=== PATIENT | female | born 1950 | race Caucasian/White ===

== ENCOUNTER 2025-04-03 13:25 | Inpatient (IN) | payer MEDICARE, SELFPAY ==
[2025-04-03] VITALS (27 sets, daily range): BP systolic 107–231; BP diastolic 59–176
--- NOTE | 2025-04-03 11:44 | ED.GENMED ---
History of Present Illness
General
Chief Complaint: Numbness
Time Seen by Provider: 04/03/25 11:31
History of Present Illness
History of Present Illness:
74-year-old female with history of hypertension presents to the emergency department for evaluation of left-sided paresthesias and subjective left-sided weakness that began this morning at 9:30 AM. She states she had a fall 2 days ago but denies
any symptoms after that. Was knitting this morning when the symptoms began. Stroke alert called promptly on arrival of patient to the ED. She denies any use of anticoagulants, does take baby aspirin intermittently but uncertain if she took this
in the past 5 days. No chest pain or dyspnea.
Past History
Past History
ED Past Medical History: None
ED Past Surgical History: None
Social History
Tobacco: Non-smoker
Alcohol: Occasional
Living: with family
Review of Systems
Review of Systems
Allergies reviewed?: Yes
All Other Systems: ROS reviewed and negative except as documented in HPI and ROS
Phy Exam
Physical Exam
Physical Exam:
GEN: Well appearing, NAD, WDWN
HEENT: Oral mucosa moist, no scleral icterus, no nasal congestion
Cardiac: Regular rate and rhythm
Lung: No respiratory distress, no tachypnea
MSK: No gross deformity or injuries
Skin: Good color, no pallor or jaundice, no rashes
Neuro: AO x3; CN II-XII grossly intact. BUE strength 5/5 in all flowers, mild hypoesthesia noted to the left upper extremity. BLE strength 5/5 in all flowers, mild hypoesthesia noted to the left lower extremity; abnormal [id number] to the left
upper extremity and abnormal [id number] to the left lower extremity, NIH of 3
Psych: Calm, cooperative
Scores
NIH Stroke Score
Level of Consciousness: 0 - Alert
LOC Questions: 0-Answers both correctly
LOC Commands: 0-Performs both correctly
Best Horizontal Gaze: 0-Normal
Visual Flowers: 0=Normal, no visual loss
Facial Palsy: 0=Normal, symmetrical
Motor - Right Arm: 0=No drift 10 seconds
Motor - Left Arm: 0=No drift 10 seconds
Motor - Right Le-No drift 5 seconds
Motor - Left Le-No drift 5 seconds
Limb Ataxia: 2-Present in two limbs
Sensation: 1-Mild loss
Best Language: 0-No aphasia
Dysarthria: 0-Normal
Extinction and Inattention: 0-No abnormality
NIH Total Score:: 3
Course
Orders/Labs/Results
Orders:
Orders
04/03/25 11:34
CT HEAD STROKE ALERT W/o Cont Stat
Comment:
Reason For Exam: stroke alert
04/03/25 11:43
Electrocardiogram (*1) Urgent
Reason for Study: TIA/Stroke
EKG- Treatment ONCE
Labetalol HCl [Trandate] 10 mg IV NOW STA
04/03/25 11:45
Nicardipine 40 mg/200 ml [Cardene] 40 mg in 200 ml IV PER PROTOCOL
Initial dose in mg/hr, then titrate:: 5
Titrate to keep:: SBP 120 - 140 mmHg
Titrate by mg/hr:: 2.5 mg/hr
Frequency of titrations (minutes):: 5-15 minutes
Maximum dose in mg/hr:: 15
Begin to taper infusion when:: Remained at goal for 2hrs
Taper by mg/hr:: 2.5 mg/hr
Frequency of taper (minutes) if patient maintains goal:: every 15-30 minutes
Taper to off?: Yes
If infusion off & no longer maintaining goal:: Contact Provider
04/03/25 11:55
Complete Blood Count/With Diff Urgent
Comprehensive Metabolic Panel Urgent
04/03/25 13:09
Admit/Transfer Patient As Directed
Co-Sign Provider:
Level of Care: Inpatient admission
Assign to:: ICU
Physician / Group: chris
Diagnosis: hypertensive emergency
Reason for Hospitalization: hypertensive emergency
Expected length of stay greater than two midnights?: Yes
ELOS- Estimated Length of Stay in days: 2
I certify the patient meets the requirements for IP care: Yes
04/03/25 13:10
Code Status As Directed
Resuscitation Status: Full Code
PRN Pain Medication Management As Directed
May give lesser potent ordered pain med per pt: Yes
preference::
Protocol:: Medication orders for pain may be administered in a
manner that supports deferring to patient preference
when the pt is:
- Requesting an ordered lesser potent pain medication.
Least to most potent pain medications are defined
as: acetaminophen < NSAID < tramadol < opioids
(morphine, oxycodone, hydromorphone).
- Requesting a lesser dose of the same medication IF
ORDERED.
- Requesting a less intrusive route of administration
if both routes are prescribed by the provider (PO <
IV).
Abnormal Lab Results
04/03/25 04/03/25
11:47 11:55
Chloride 110 H mmol/L
(98-107)
Glucose 113 H mg/dl
(70-99)
POC Glucose 104 H mg/dl
(70-99)
04/03/25 11:55
04/03/25 11:55
Vital Signs
Initial and Last Documented VS:
Initial Vital Signs
Temp Pulse Resp BP Pulse Ox
98.6 F 93 20 231/176 98
04/03/25 11:24 04/03/25 11:24 04/03/25 11:24 04/03/25 11:24 04/03/25 11:24
Last Documented Vital Signs
Temp Pulse Resp BP Pulse Ox
98.6 F 78 16 137/84 96
04/03/25 11:24 04/03/25 13:00 04/03/25 13:00 04/03/25 13:00 04/03/25 12:31
MDM/Problems Addressed
MDM/Problems Addressed:
74-year-old female presenting as a stroke alert due to acute onset of left-sided paresthesias and 'weakness'. She is found to have an NIH of 3 on the basis of upper and lower left limb ataxia and diffuse left-sided paresthesias with hypoesthesia.
Taken urgently for CT of the head which showed a small right basal ganglia bleed which is most likely hypertensive in nature. Patient started promptly on IV antihypertensives and will be admitted to the intensive care unit for further aggressive
monitoring and blood pressure management. Seen in conjunction with neurology
Comment
Comment:
EKG independently interpreted by me shows normal sinus rhythm at a rate of 90 with a left bundle branch block and no ischemic changes
*Pulse Oximetry
SaO2: 98
Oxygen Mode of Delivery: Room air
Patient hypoxic: no
*Critical Care Note
Total Time (30-74mins, 75-104mins- exclusive of procedures): 35 minutes
comment:
Critical care time: 35 minutes
Critical care time was exclusive of: Separately billable procedures, treating other patients, and teaching time
Critical care was necessary to treat or prevent imminent or life-threatening deterioration of the following conditions: Acute hemorrhagic stroke due to hypertensive emergency
Critical care time spent personally by me on the following activities:
[x] Review of old charts
[x] Obtaining history from patient or surrogate
[x] Ordering and review of the laboratory studies
[x] Ordering and review of radiographic studies
[x] Ordering and performing treatments and interventions
[x] Patient patient's response to treatment
[x] Development of treatment plan with patient or surrogate
Update Note
Update Note:
1135: CT of the head independently interpreted by myself showing a small right thalamic hemorrhage likely acute. Will cancel CT perfusion and CT angiogram. Reviewed with neurology, no indication for transfer at this time. Will start aggressive
antihypertensives, given that the patient is uncertain about recent use of baby aspirin will give DDAVP
Patient is not a thrombolytic candidate on the basis of acute intracranial hemorrhage
ED Attending Note
-
Portions of this chart may have been created with voice recognition software.� Occasional wrong word or��sound alike� substitutions may have occurred due to the inherent limitations of voice recognition software.
Discharge Plan
Departure
Patient Disposition: Admit
Date of Disposition: 04/03/25
Time of Disposition: 11:47
Admit to: ICU
Presentation/result/management discussed w/ accepting MD/DO: Hospitalist
Discharge Problem:
Hemorrhagic stroke
Prescriptions:
No Action
calcium carbonate [Calcium 600] 600 mg calcium (1,500 mg) Tablet
600 mg PO DAILY
ibuprofen [Advil] 200 mg Tablet
200 mg PO DAILY
Interventions
Interventions:
*Risk Screen - Suicide Last Done: 04/03/25 11:24
*General Assessment Last Done: 04/03/25 11:52
*Neglect/Abuse Screening Last Done: 04/03/25 11:24
*ED- Fall Risk Assessment Last Done: 04/03/25 11:52
ED- Neurological Assessment Last Done: 04/03/25 12:16
Discharge Date and Time
Print Language: NIUEAN
--- NOTE | 2025-04-03 11:50 | CON.NEURO ---
Consultation
Order
Date of Consultation: 04/03/25
Reason for Consult: Stroke alert
Activated at 11:32 am
Neurology Consultation Note.
HPI: This is a 74-year-old right-handed woman who presented to [facility] on 04/03/2025 with sensory symptoms.
According to the patient she developed an acute simultaneous left face arm and leg numbness and left hand clumsiness at 9:30 in the morning today. No reports of headaches, change in strength, vision or abnormal movements.
ER VS: 231/176, 93, 20, afebrile
EKG:NSR, QTc Int : 484 ms.
PDMP:none
Labs:Glucose�104, normal WBCs, platelets
CT head wo contrast�acute left thalamic hemorrhagic infarct
PMH: DLP, M�ni�re's disease,
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
All: Pineapple
ROS: Positive for left-sided numbness and left hand clumsiness
NIH Stroke Scale
1A Level of Consciousness: 0/3
1B LOC Questions: 0/2
1C LOC Commands: 0/2
2 Best Gaze: 0/2
3 Visual: 0/3
4 Facial Palsy: 0/3
5A Motor Arm LEFT: 0/4
5B Motor Arm RIGHT: 0/4
6A Motor Leg LEFT: 0/4
6B Motor Leg RIGHT: 0/4
7 Limb Ataxia: 1/2
8 Sensory: 1/2
9 Best Language: 0/3
10 Dysarthria: 0/2
11 Extinction/Inattention: 0/2
Total NIHSS: 2
Assessment and Plan:
I. Acute right thalamic stroke with hemorrhagic conversion
II. Hypertensive emergency
III. DLP
-Continue Telemetry monitoring
-Aspiration precautions
-Cautious lowering of BP by approximately 15 % during the first 24 hours is SBP >220 mmHg or diastolic blood pressure >120 mmHg
-Start antihypertensive medications if BP>140/90 mmHg and neurologically stable in 24 to 48 hours after stroke onset
-TTE
-No antiplatelets medications for now.
-Lipitor 40 mg QHS.
-Please check HbA1C, LDL.
-Brain MRI
-For patients at increased risk of gastroduodenal toxicity from antiplatelet agents, particularly those 75 years of age or older, it is reasonable to coadminister a proton pump inhibitor
-Lifestyle modification, such as smoking cessation, exercise, and diet
-PT.
-DVT prophylaxis.
I personally reviewed all radiology and labs along with past medical records pertinent to current medical problems. Total time spent in patient care is 60 minutes.
Thank you for allowing us to participate in the care of this patient. We will continue to follow. Please do not hesitate to contact us with any questions or concerns.
Subjective/Objective
Subjective Data
Date of Service: April 03, 2025
Objective Data
Vital Signs
Temp Pulse Resp BP Pulse Ox
37.0 C 93 20 231/176 98
04/03/25 11:24 04/03/25 11:24 04/03/25 11:24 04/03/25 11:24 04/03/25 11:45
Patient Allergies
pineapple (Pineapple) Allergy (Verified 04/03/25 11:24)
Anaphylaxis
Medications
-
Active Medications
Generic Name Dose Route Start Last Admin
Trade Name Freq PRN Reason Stop Dose Admin
Nicardipine/Sodium Chloride 40 mg in 200 mls @ 0 mls/hr 04/03/25 11:45
Cardene IV
PER PROTOCOL KAJAL
Protocol
Per Protocol
Desmopressin Acetate 32 mcg/ 58 mls @ 116 mls/hr 04/03/25 11:49
Sodium Chloride IV 04/03/25 12:14
NOW STA
Home Medications
�Medication �Instructions �Recorded
aspirin 81 mg tablet,delayed 81 mg PO DAILY ##0 08/02/13
release
[2025-04-03 11:53] LABS: Glucose - Point of Care 104 mg/dl (70-99)
[2025-04-03 12:06] LABS: % Basophils 0.5 % (0-2); % Eosinophils 3.2 % (0-6); % Immature Granulocytes 0.3 % (0-0.5); % Monocytes 6.6 % (1.7-9.3); % Neutrophils 65.4 % (42.2-75.2); Absolute Eosinophils 0.3 10^3/uL (0-0.7); Absolute Lymphocytes 1.9 10^3/uL (1.2-3.4); Absolute Monocytes 0.5 10^3/uL (0.1-0.6); Absolute Neutrophils 5.2 10^3/uL (1.4-6.5); Hematocrit 46.4 % (37.0-47.0); Hemoglobin 15.4 g/dL (12.0-16.0); Mean Corp Hgb Conc. 33.2 g/dL (33.0-37.0); Mean Corpuscular Hgb 29.5 pg (27.0-31.0); Mean Corpuscular Volume 88.9 fL (81.0-99.0); Nucleated Red Blood Cells % 0 %; Platelet Count 297 10^3/uL (130-400); Red Blood Cell Count 5.22 10^6/uL (4.20-5.40); White Blood Cell Count 7.9 10^3/uL (4.8-10.8)
[2025-04-03] MEDS: CARDENE 200 IV ×3 (12:06→20:17)
[2025-04-03] MEDS: TRANDATE 10 MG IV (12:06)
[2025-04-03 12:20] LABS: ALT (SGPT) 12 U/L (0-35); AST (SGOT) 20 U/L (14-36); Albumin 4.9 g/dl (3.5-5.0); Alkaline Phosphatase 90 U/L (38-126); Blood Urea Nitrogen 17 mg/dl (7-17); Calcium 9.5 mg/dl (8.4-10.2); Carbon Dioxide 23 mmol/L (22-30); Chloride 110 mmol/L (98-107); Estimated Creatinine Clearance 47 ml/min; Glucose 113 mg/dl (70-99); Potassium 4.3 mmol/L (3.5-5.1); Sodium 141 mmol/L (135-145); Total Protein 8.2 g/dl (6.3-8.2); eGFR 58.75
--- NOTE | 2025-04-03 13:19 | HPS.HSE ---
Family Physician
-
Family Physician: * NONE
Chief Complaint
-
left sided numbness
History of Present Illness
74-year-old female past medical history of M�ni�re's disease, hypertension possibly on medication years ago, prior stroke 10 years ago, presenting with left-sided numbness and subjective left-sided weakness that started this morning at 9:30 AM. She
describes that she had a pinched nerve with numbness of the left arm, left face and left leg. She had a fall 2 days ago but denies any symptoms after that. She was knitting this morning when the symptoms began. Stroke alert was called on arrival
of patient coming to the emergency room. She is not on any blood thinners. She does take baby aspirin intermittently but not sure if she took in the past 5 days. Denies chest pain or shortness of breath. Denies any difficulty speaking or
confusion. No dizziness or vertigo. No blurry vision.
Denies alcohol, smoking or any drugs.
Medical History
Past Medical History
Past Medical History: Reports Other (M�ni�re's disease, hypertension possibly on medication years ago, prior stroke 10 years ago)
Past Surgical History: Reports None
Social History
Tobacco: Non-smoker
Alcohol: None
Drug: None
Family History
Family History: Not pertinent
Allergies / Home Medications
Allergies reflects when Allergies were last updated in [facility].
Home Medications with original date entered in [facility]
Allergy/Medication List:
Allergies
Allergy/AdvReac Type Severity Reaction Status Date / Time
pineapple (Pineapple) Allergy Anaphylaxis Verified 04/03/25 11:24
Home Medications
calcium carbonate (Calcium 600) 600 mg PO DAILY Supplement 04/03/25
ibuprofen 200 mg tablet (Advil) 200 mg PO DAILY mild pain 04/03/25
Review of Systems
-
History Source: Patient
Constitutional: Reports No Symptoms
EENT: Reports No Symptoms
Respiratory: Reports No Symptoms
Cardiac: Reports No Symptoms
Abdomen/GI: Reports No Symptoms
: Reports No Symptoms
Musculoskeletal: Reports No Symptoms
Skin: Reports No Symptoms
Neurological: Reports No Symptoms
Endocrine: Reports No Symptoms
Hematologic/Lymphatic: Reports No Symptoms
Psych: Reports No Symptoms
Physical Exam
Vital Signs
Vital Signs
Temp Pulse Resp BP Pulse Ox
98.6 F 78 16 137/84 96
04/03/25 11:24 04/03/25 13:00 04/03/25 13:00 04/03/25 13:00 04/03/25 12:31
Physical Exam
General: Well Developed, Well Nourished and No Apparent Distress
HEENT: NormoCephalic, Moist mucous membranes and Atraumatic
Respiratory: Clear
Cardiac: S1/S2 and Regular Rhythm; No Murmur or Rub
GI: Soft, Non Tender, Non Distended and Normal Bowel Sounds; No Organomegaly
Rectal: Deferred by Provider
Musculoskeletal: No Clubbing, No Cyanosis and No Edema
Skin: No Rash
Neuro: Nonfocal/grossly intact
Laboratory Results
-
04/03/25 11:55
04/03/25 11:55
Laboratory Results
Total Bilirubin 1.0 mg/dl (0.2-1.3) 04/03/25 11:55
AST 20 U/L (14-36) 04/03/25 11:55
ALT 12 U/L (0-35) 04/03/25 11:55
Alkaline Phosphatase 90 U/L (38-126) 04/03/25 11:55
Data Reviewed
-
Lab Data: Labs Reviewed by me
Old Records: Reviewed
Impression/Plan
-
IMPRESSION:
PLAN:
# Right thalamic small acute infarct with hemorrhagic conversion secondary to hypertensive emergency
-CT head shows right thalamic small acute hemorrhagic infarct
- NIH 3
-Check A1c and lipid panel
- Start Lipitor 40 mg
- Check MRI brain
-Check echo
-No antiplatelet medications
- Neurology consulted
# Hypertensive emergency likely due to uncontrolled hypertension
- Labetalol given
- Nicardipine drip
Prior CVA 10 years
M�ni�re's disease
Full code
DVT prophylaxis- SCDs
Regular diet
[2025-04-03 14:47] LABS: INR 0.92; PT 12.8 Sec (11.4-14.6)
[2025-04-03 14:48] LABS: APTT 28.8 Sec (23.4-35.0)
--- NOTE | 2025-04-03 14:55 | PTCARENOTE ---
Addendum entered by Kelsey Bailey RN 04/03/25 15:33:
Cardene gtt titrated up for SBP 145 per order, see flowsheet.
Original Note:
Pt rec'd from ED RN, oriented to room and plan of care, Aox3, pleasant and cooperative. Orders reviewed, call acosta in hand, at bedside. Cardene gtt infusing at 7.5 mg/hr upon handoff. Assessment as documented -see worklist. 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
at this time.
[2025-04-03 15:27] LABS: Glucose - Point of Care 121 mg/dl (70-99)
--- NOTE | 2025-04-03 16:31 | CON.INTV ---
Consultation
Consultation Request
Date/Time Consultation Requested: 04/03/2025
Date/Time Consultation Performed: 04/03/2025
Requesting Provider: Dr. Mills
Performing Provider: DR. Zechariah Lynch
Reason for Consultation: Right thalamic small acute infarct/hemorrhagic conversion-hypertensive clarke
Medical History
-
History of Present Illness:
74-year-old woman with past medical history significant for M�ni�re's disease, hypertension prior CVA 10 years ago, presented with left-sided numbness and subjective left-sided weakness that started in the morning of admission.
She was admitted to the hospital 04/03/2025.
She does describe a fall about 2 days ago. No residual symptoms from that.
She was at rest sitting when symptoms started in the morning.
Does not take any antiplatelets or anticoagulants.
Denies shortness of breath, chest pain or palpitations.
Denies difficulty with his speech or her mental status is at baseline.
Denies blurry vision.
Denies alcohol use or smoking use.
Stroke alert was called: CT head showed right thalamic small acute infarct with hemorrhagic conversion significantly elevated blood pressure.
Admitted to the critical care unit for IV infusion antihypertensive.
Past Medical History
Past Medical History: Other ( see assessment and plan)
Social History
Tobacco: Non-smoker
Alcohol: None
Drug: None
Family History
Family History: Reviewed & Not Pertinent
Allergies / Home Medications
Allergies
Allergy/AdvReac Type Severity Reaction Status Date / Time
pineapple (Pineapple) Allergy Anaphylaxis Verified 04/03/25 11:24
Home Medications
�Medication �Instructions �Recorded �Confirmed �Last Taken �Type
calcium carbonate (Calcium 600) 600 mg PO DAILY Supplement 04/03/25 04/03/25 Unknown History
ibuprofen 200 mg tablet (Advil) 200 mg PO DAILY mild pain 04/03/25 04/03/25 Unknown History
Review of Systems
-
History Source: Patient
All other systems: Negative unless noted
Vitals / Labs / Diagnostic Testing
Vital Signs
Temp Pulse Resp BP Pulse Ox
97.9 F 84 22 136/94 96
04/03/25 16:11 04/03/25 16:00 04/03/25 16:00 04/03/25 16:00 04/03/25 16:00
Lab Data
04/03/25 11:55
04/03/25 11:55
Laboratory Results
04/03/25
14:30
PT 12.8
INR 0.92
APTT 28.8
Diagnostic Testing:
Physical Exam
-
HEENT: Normocephalic
Cardiovascular: S1/S2
Respiratory: Clear and Non-Labored Respirations
GI: Soft and Non Distended
Neurology: Awake and Alert
Skin: Warm
General: Comfortable
Assessment
-
74-year-old woman with past medical history noted. Admitted with neurological symptoms-found to have small hemorrhagic thalamic stroke. Hypertensive emergency. Admitted to the critical care unit for close monitoring and IV antihypertensive
therapy.
Hypertensive emergency-blood pressure in the emergency room 230/176
Acute CVA-left thalamic with hemorrhagic infarct.
CT head 04/03/2025: Reviewed right thalamic small acute hemorrhagic infarct.
Chest x-ray: Reviewed showed no acute abnormalities
Conditions present prior admission:
History of hypertension-not on medication
History of M�ni�re's disease
Assessment and plan:
Critically ill requiring IV antihypertensive infusion
Normal renal function
Chest x-ray without widened mediastinum
EKG nonischemic- Denies chest
Continue Cardene drip-will titrate
-Target BP by approximately 15 % during the first 24 hours is SBP >220 mmHg or diastolic blood pressure >120 mmHg
-Start antihypertensive medications if BP>140/90 mmHg and neurologically stable in 24 to 48 hours after stroke onset
Hemodynamic monitoring
Eventual speech evaluation.
Aspiration precautions
Obtain echocardiogram
No antiplatelets medications for no due to hemorrhagic conversion.
Continue statin
Eventual MRI
Eventual PT/OT evaluation.
-DVT prophylaxis--SCDs
Critical care statement: A total of 38 minutes of critical care time was provided for this patient today. This includes management of unstable vital signs, evaluation of the patient at bedside, reviewing the patient's pertinent medical records
including ventilator settings, arterial blood gases, radiographs, microbiology, laboratory evaluations and discussion with primary team, critical care nursing, and respiratory therapy.
[2025-04-03 17:08] LABS: HDL Cholesterol 51 mg/dl; LDL Cholesterol, Calculated 227 mg/dl; Magnesium 2.3 mg/dl (1.6-2.3); Phosphorus 3.2 mg/dl (2.5-4.5); Total Cholesterol 319 mg/dl (50-199); Triglyceride 206 mg/dl (10-149); Very Low Density Lipoprotein 41 mg/dl (0-30)
--- NOTE | 2025-04-03 20:00 | PTCARENOTE ---
Addendum entered by Henrietta Jenkins RN 04/04/25 03:31:
Pt states that the sensation in the left side (face, arm, leg) are all improving. Pt was able to clarify that earlier [id number] the sensation was almost back to normal but still decreased. Assessment otherwise unchanged. Pt was able to ambulate to [facility]
BR with a standby assisst for lines. Pt educated onj the need for monitoring equipment. Belongings and call acosta within reach
Addendum entered by Henrietta Jenkins RN 04/03/25 23:23:
Pt reports improving LLE sensation 'They feel the same'. NIH 1. Assessment otherwise unchanged. Pt's belongings and call acosta within reach.
Original Note:
Pt care assumed by this RN. NIH performed with previous RN for establishment of baseline. IVs in place and WDL. See EMR for Cardene titration.
Pt remains AOx4. NIH of 2, deficit in left sided sensation (decreased but slowly improving) and ataxia in the LUE. ERLIN. Palp Pules with - edema in AE. Clear but diminished BS in AL. + BS in AQ with a soft nontender abd. LBM today this AM per
report. Pt is able to ambulated to the BR with a standby assist for management of lines and devices. Skin intact. Pt cares for self and is motivated to go home. Plan of care was reviewed. Call acosta and personal belongings within reach.
[2025-04-04] VITALS (23 sets, daily range): BP systolic 123–168; BP diastolic 62–98; PULSE 91–93; BMI 26.9
[2025-04-04 06:23] LABS: % Basophils 0.3 % (0-2); % Eosinophils 2.1 % (0-6); % Immature Granulocytes 0.4 % (0-0.5); % Lymphocytes 22.9 % (20.5-51.1); % Monocytes 8.5 % (1.7-9.3); % Neutrophils 65.8 % (42.2-75.2); Absolute Eosinophils 0.2 10^3/uL (0-0.7); Absolute Lymphocytes 1.7 10^3/uL (1.2-3.4); Absolute Monocytes 0.6 10^3/uL (0.1-0.6); Absolute Neutrophils 4.9 10^3/uL (1.4-6.5); Hemoglobin 13.2 g/dL (12.0-16.0); Mean Corpuscular Hgb 29.3 pg (27.0-31.0); Mean Corpuscular Volume 88.7 fL (81.0-99.0); Nucleated Red Blood Cells % 0 %; Platelet Count 261 10^3/uL (130-400); Red Blood Cell Count 4.51 10^6/uL (4.20-5.40); Red Cell Dist. Width 14.2 % (11.5-14.5); White Blood Cell Count 7.5 10^3/uL (4.8-10.8)
[2025-04-04 06:49] LABS: ALT (SGPT) 10 U/L (0-35); AST (SGOT) 17 U/L (14-36); Albumin 3.8 g/dl (3.5-5.0); Alkaline Phosphatase 65 U/L (38-126); Blood Urea Nitrogen 20 mg/dl (7-17); Calcium 8.9 mg/dl (8.4-10.2); Carbon Dioxide 23 mmol/L (22-30); Chloride 114 mmol/L (98-107); Estimated Creatinine Clearance 53 ml/min; Glucose 109 mg/dl (70-99); Potassium 4.1 mmol/L (3.5-5.1); Sodium 141 mmol/L (135-145); Total Bilirubin 0.9 mg/dl (0.2-1.3); Total Protein 6.5 g/dl (6.3-8.2); eGFR > 60.00
--- NOTE | 2025-04-04 07:48 | W.PN.NEURO.1 ---
Today's Communication / Plan
-
.
Subjective/Objective
Subjective Data
Date of Service: April 04, 2025
Neurology follow-up note
Ms. Savage reports no complaints. Her blood pressure has normalized on after Cardene drip and losartan initiation.
No reports of headache change in vision.
The patient describes her previous stroke, which occurred 10 years ago. At that time, she experienced profuse sweating, vomiting, and imbalance and was treated at [facility].
She states she stopped taking her 'stroke medicine' due to stomach irritation. The patient expresses reluctance to take aspirin, saying, 'No, it spins out my blood too much.'
TTE-Interatrial septum is intact with no evidence of shunting by color flow Doppler.
[id number].
Brain MRI wo tara-stable acute R thalamic hemorrhagic infarct, chronic right external capsule hemorrhagic infarct. Other tiny chronic hemorrhagic lacunar infarcts are noted involving the right and left thalamus, and central juanjo. Mild
encephalomalacia with chronic hemosiderin component demonstrated involving the medial left cerebellar hemisphere, consistent with old infarct.
PMH: DLP, M�ni�re's disease,
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
All: Pineapple, ASA?
ROS: Positive for fluctuating mood
General: Well developed. In no acute distress.
Cardio: Regular rate and rhythm without murmur. Extremities are without cyanosis or edema.
Neuro:
Mental Status: Alert, oriented to person, place, and date. Labile mood. Tangential. Follows complex requests across the midline. Comprehension, naming, and repetition intact.
Cranial Nerves: Unable to visualize optic discs due to insufficient dilatation. Pupils are equally round and reactive to light. EOMs full. Visual flowers full to confrontation. No ptosis. No nystagmus. V1-V3 intact to light touch and pinprick
bilaterally, symmetric. Face symmetric. Impaired hearing AU. The palate elevated well. SCMs and traps 5/5. Tongue midline. No dysarthria.
Motor: Normal bulk and tone. No pronator or arm drift. Strength 5/5 throughout. No clonus.
Sensory: Normal LT
Coordination: No dysmetria or tremor.
Gait: deferred
Assessment and Plan:
I. Acute right thalamic stroke with hemorrhagic conversion. Likely etiology�small vessel disease.
II. Vascular encephalopathy
III. DLP
-Continue Telemetry monitoring
-Blood pressure goal�normotension
-Please follow up Carotid Doppler US results
-Lipitor 40 mg QHS.
-Please repeat CT head without contrast tomorrow before starting Plavix 75 mg daily given aspirin intolerance.
-DVT prophylaxis.
- Outpatient neurology follow-up.
I personally reviewed all radiology and labs along with past medical records pertinent to current medical problems. Total time spent in patient care is 40 minutes.
Thank you for allowing us to participate in the care of this patient. Please do not hesitate to contact us with any questions or concerns.
Objective Data
Vital Signs
Temp Pulse Resp BP Pulse Ox
36.2 C 79 19 137/76 93
04/04/25 07:04 04/04/25 07:00 04/04/25 07:00 04/04/25 07:00 04/04/25 07:00
Lab Results
04/04/25 06:08
04/04/25 06:08
PT 12.8 Sec (11.4-14.6) 04/03/25 14:30
INR 0.92 04/03/25 14:30
APTT 28.8 Sec (23.4-35.0) 04/03/25 14:30
Sodium 141 mmol/L (135-145) 04/04/25 06:08
Potassium 4.1 mmol/L (3.5-5.1) 04/04/25 06:08
BUN 20 mg/dl (7-17) H 04/04/25 06:08
Glucose 109 mg/dl (70-99) H 04/04/25 06:08
Calcium 8.9 mg/dl (8.4-10.2) 04/04/25 06:08
Phosphorus Cancelled 04/03/25 14:37
LDL Cholesterol, Calc Cancelled 04/03/25 14:37
Patient Allergies
pineapple (Pineapple) Allergy (Verified 04/03/25 11:24)
Anaphylaxis
Vital Signs and Labs
-
Vital Signs and Labs:
Vital Signs
Temp Pulse Resp BP Pulse Ox
36.9 C 88 17 153/85 94
04/04/25 10:57 04/04/25 12:52 04/04/25 12:52 04/04/25 12:52 04/04/25 09:00
Lab Results
04/04/25 06:08
04/04/25 06:08
PT 12.8 Sec (11.4-14.6) 04/03/25 14:30
INR 0.92 04/03/25 14:30
APTT 28.8 Sec (23.4-35.0) 04/03/25 14:30
Sodium 141 mmol/L (135-145) 04/04/25 06:08
Potassium 4.1 mmol/L (3.5-5.1) 04/04/25 06:08
BUN 20 mg/dl (7-17) H 04/04/25 06:08
Glucose 109 mg/dl (70-99) H 04/04/25 06:08
Calcium 8.9 mg/dl (8.4-10.2) 04/04/25 06:08
Phosphorus Cancelled 04/03/25 14:37
LDL Cholesterol, Calc Cancelled 04/03/25 14:37
Medications
-
Medications:
Generic Name Dose Route Start Last Admin
Trade Name Freq PRN Reason Stop Dose Admin
Calcium Carbonate 500 mg 04/04/25 08:00 04/04/25 07:57
Calcium Carbonate 500 Mg Tablet PO 05/02/25 07:59 500 mg
DAILY KAJAL Administration
Nicardipine/Sodium Chloride 40 mg in 200 mls @ 0 mls/hr 04/03/25 11:45 04/03/25 20:17
Cardene IV 200 mls
PER PROTOCOL KAJAL Administration
Protocol
Per Protocol
Losartan Potassium 25 mg 04/05/25 08:00
Losartan 25 Mg Tablet PO 05/03/25 07:59
DAILY KAJAL
Sodium Chloride 0 flush 04/03/25 15:00
Sodium Chloride 0.9% (Flush) Syringe IV 05/01/25 14:59
PER PROTOCOL KAJAL
Home Medications
-
Home Medications
calcium carbonate (Calcium 600) 600 mg PO DAILY Supplement 04/03/25
ibuprofen 200 mg tablet (Advil) 200 mg PO DAILY mild pain 04/03/25
[2025-04-04] MEDS: OSCAL CAL 500 500 MG PO (07:57)
--- NOTE | 2025-04-04 08:58 | PTCARENOTE ---
Pt rec'd from previous RN 07:15, AOx3, pleasant and conversant, NIHSS 2 with sx continuing to improve, sl ataxia in LUE and decreased sensation in L side noted. Pt with Cardene gtt infusing at 2.5 mg/hr -BPs continue WNL-see worklist. Medications
and assessment as documented, pt ate 100% breakfast. Plan discussed with rubbing bed operator Dr. Lynch, neurologist Dr. Corado. Pt for MRI and Carotid US today, and eventually transition to oral medications. Pt in agreement with plan, anxious to go home,
stated (pleasantly) she will leave AMA if not discharged today. Pt stated she is not able to rest well in hospital due to new surroundings. Plan for outpatient followup discussed, pt needs to select new PCP as her previous MD .
Recommendations provided by this RN, printout provided for patient to take home for reference. Stroke education reinforced with handout, videos and verbal education. Pt verbalized understanding and stated she is aware she needs to adhere to
medication regimen going forward. Pt in good spirits, call acosta in hand, states she will get oob to chair after phone call with her . Safe environment continues.
[2025-04-04] MEDS: COZAAR 25 MG PO (09:39)
--- NOTE | 2025-04-04 09:42 | PTCARENOTE ---
Addendum entered by Kelsey Bailey RN 04/04/25 09:54:
Pt assisted oob to walk into bathroom and perform hygiene care; urinated 200 mls yellow/nataly urine, arnie care, CHG bath and oral care completed. Seated in chair with call acosta at this time.
Original Note:
Plan discussed in grand rounds. 25 mg Losartan ordered and given at this time.
--- NOTE | 2025-04-04 10:15 | CM ---
Initial assessment completed with patient who lives with her in a 3 story home plus basement with B/B on all 3 floors and 1 step to enter. 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 No DME or in-home services. No HC-POA,
no service. Support system is her and a grounds helper. No PCP, recently . Seeking another. Pharmacy is [facility] on [address] [facility] in [place], [place]. Discharge POC: Home with no needs.
--- NOTE | 2025-04-04 10:44 | W.PN.INTV ---
Today's Communication / Plan
Recommendations
Losartan
Wean off Cardene drip
Physical therapy/Occupational Therapy
Pending MRI
Possible transfer to telemetry later today.
Assessment
-
74-year-old woman with past medical history noted. Admitted with neurological symptoms-found to have small hemorrhagic thalamic stroke. Hypertensive emergency. Admitted to the critical care unit for close monitoring and IV antihypertensive
therapy.
Hypertensive emergency-blood pressure in the emergency room 230/176
Acute CVA-left thalamic with hemorrhagic infarct.
CT head 04/03/2025: Reviewed right thalamic small acute hemorrhagic infarct.
Chest x-ray: Reviewed showed no acute abnormalities
Conditions present prior admission:
History of hypertension-not on medication
History of M�ni�re's disease
Assessment and plan:
Clinically improved-blood pressure has been significantly better.
Remains on low-dose Cardene drip
Will transition to oral antihypertensive-losartan 25 mg given today 04/04/2025.
Hoping to wean off Cardene drip today.
-
Neurologically intact. Denies any complaints.
Echocardiogram 04/03/2025: Reviewed, showed normal LVEF. No regional motion wall abnormalities. Stage I diastolic dysfunction. Normal right ventricular size and function. No significant valvular abnormalities.
Normal renal function
Chest x-ray without widened mediastinum
EKG nonischemic- Denies chest
Continue Cardene drip-will titrate
-
For MRI today.
Antiplatelets per primary team/neurology
Continue statin
-
Tolerating diet
Continue aspiration precaution
-
-DVT prophylaxis--SCDs
Waiting for MRI, if there is no significant hemorrhagic conversion then transferred to telemetry.
If patient is transferred to telemetry critical care team will sign off.
Subjective Dataa
Subjective Data
Date of Service:
Date of Service: April 04, 2025
Chief Complaint: Cost Control Analyst Follow Up (Hypertensive emergency--CVA)
Subjective:
Patient denies any complaints this morning
Denies headache, blurry vision.
Denies nausea or vomiting.
Denies shortness of breath.
Remain on Cardene drip overnight
Review of Systems
Cardiopulmonary: Dyspnea (n) and Dyspnea on Exertion (n)
GI: Abdominal Pain (n)
Neuro: Headache (n)
Objective Data
Data Reviewed
Vital Signs / I&O / Oxygen:
Vital Signs
Temp Pulse Resp BP Pulse Ox
97.2 F 97 19 136/77 94
04/04/25 07:04 04/04/25 09:00 04/04/25 09:00 04/04/25 09:00 04/04/25 09:00
Intake and Output
04/03/25 04/04/25 04/05/25
06:59 06:59 06:59
Intake Total 878 / 890.5 290.0 / 290.0
Output Total 600 / 600 200 / 200
Balance 278 / 290.5 90.0 / 90.0
SaO2 94
Physical Exam
General: Respiratory Distress (n)
HEENT: Normocephalic
Cardiovascular: S1-S2
Respiratory: Non-Labored Respirations
GI: Soft and Non Distended
Neurology: Awake, Alert and Oriented
Skin: Warm
Labs/Micro/Reports
Lab Data
04/04/25 06:08
04/04/25 06:08
Laboratory Results
04/03/25
14:30
PT 12.8
INR 0.92
APTT 28.8
[2025-04-04 10:50] LABS: Glycohemoglobin (HgbA1c) 5.9 % (4.0-5.6)
--- NOTE | 2025-04-04 10:56 | PTCARENOTE ---
Addendum entered by Kelsey Bailey RN 04/04/25 11:40:
Pt will be sent for Carotid US directly after MRI.
Original Note:
MRI ready for patient to come down, letter sorting machine operator confirmed ok to send patient off telemetry. Cardene gtt weaned off for SBP 136 at this time per order.
--- NOTE | 2025-04-04 13:51 | W.PN.HOSP.TC ---
Today's Communication/Plan
-
repeat AM CT Head and determine safe initiation of blood thinners with Neuro input
tx tele
Assessment / Plan
Assessment / Plan
Assessment:
Hypertensive emergency-blood pressure in the emergency room 230/176
History of Essential HTN
- s/p Nicardipine drip
- Losartan 25mg daily; titrate as needed
Acute CVA
- left thalamic with hemorrhagic infarct.
- Echocardiogram 04/03/2025: Reviewed, showed normal LVEF. No regional motion wall abnormalities. Stage I diastolic dysfunction. Normal right ventricular size and function. No significant valvular abnormalities.
- CT head 04/03/2025: Reviewed right thalamic small acute hemorrhagic infarct.
- MRI: No significant change in small hemorrhagic infarct of the right thalamus. Other chronic infarcts with chronic hemorrhagic components are noted, as described. No mass effect.
- repeat CT in AM and determine blood thinners initiation with Neurology
History of M�ni�re's disease
DVT ppx: SCDs
Code: Full
Anticipated Discharge: Within 24 hours
Subjective/Interval History
-
Date of Service: April 04, 2025
resting comfortably, no complaints
Objective Data
-
Labs:
Laboratory Results
04/04/25
06:08
WBC 7.5
Hgb 13.2
Hct 40.0
Plt Count 261
Sodium 141
Potassium 4.1
Chloride 114 H
Carbon Dioxide 23
BUN 20 H
Creatinine 0.9
Glucose 109 H
Calcium 8.9
Total Bilirubin 0.9
AST 17
ALT 10
Alkaline Phosphatase 65
Vital Signs:
Vital Signs
Temp Pulse Resp BP Pulse Ox
98.5 F 88 17 153/85 94
04/04/25 10:57 04/04/25 12:52 04/04/25 12:52 04/04/25 12:52 04/04/25 09:00
I&O
04/03/25 04/04/25 04/05/25
06:59 06:59 06:59
Intake Total 878 / 890.5 290.0 / 290.0
Output Total 600 / 600 200 / 200
Balance 278 / 290.5 90.0 / 90.0
Physical Exam
-
General: No Apparent Distress
HEENT: Normocephalic and Atraumatic
Respiratory: Negative Wheezes
Cardiac: Regular Rhythm and S1/S2
GI: Soft
Genito-urinary: No Costovertebral Tender
Neuro: AO x 3
Psych: Calm
Data Reviewed
-
Total Time Spent with Patient (in minutes): 42
Labs: Labs Reviewed by me
--- NOTE | 2025-04-04 14:43 | PTCARENOTE ---
Plan discussed with attending Dr. Lantigua and neurology, pt ordered for repeat head CT in am, then initiation of antiplatelet therapy. pt downgraded to telemetry, ready bed 437-1 assigned. Report given to Telma GARZA. Pt updated, transferred to new room
in wheelchair with family law specialist.
--- NOTE | 2025-04-04 14:56 | PTOTSP ---
pt currently requires no assistance to complete simple ADLs, functional transfers, ambulation. pt demonstrates ability to complete coordination tasks without difficulty. pt is impulsive, reports that her deficit of L sided numbness 'will go away'.
no acute OT needs identified at this time, will sign off.
--- NOTE | 2025-04-04 15:09 | CM ---
Patient transferred to Room 437-1.
[2025-04-04] MEDS: LIPITOR 40 MG PO (16:50)
[2025-04-04] MEDS: TRANDATE 5 MG IV (23:23)
--- NOTE | 2025-04-04 23:27 | PTCARENOTE ---
Addendum entered by Jennifer Diamond RN 04/05/25 00:44:
BP at 0000 136/7. No further intervention required.
Original Note:
Manual BP 158/84, HR 78. Per parameters, SBP to be < 140. Provider notified of BP. PRN labetalol ordered and administered. This RN will recheck BP at 0000.
[2025-04-05 00:05] VITALS: BP 136/70
[2025-04-05 03:00] VITALS: BP 147/96
[2025-04-05 03:05] VITALS: BP 142/78
[2025-04-05 07:07] LABS: Hematocrit 40.8 % (37.0-47.0); Hemoglobin 13.6 g/dL (12.0-16.0); Mean Corp Hgb Conc. 33.3 g/dL (33.0-37.0); Mean Corpuscular Hgb 29.9 pg (27.0-31.0); Mean Corpuscular Volume 89.7 fL (81.0-99.0); Mean Platelet Volume 9.1 fL (7.4-10.4); Platelet Count 270 10^3/uL (130-400); Red Blood Cell Count 4.55 10^6/uL (4.20-5.40); Red Cell Dist. Width 14.5 % (11.5-14.5); White Blood Cell Count 7.6 10^3/uL (4.8-10.8)
[2025-04-05 07:16] LABS: Blood Urea Nitrogen 20 mg/dl (7-17); Calcium 9.4 mg/dl (8.4-10.2); Carbon Dioxide 23 mmol/L (22-30); Chloride 111 mmol/L (98-107); Estimated Creatinine Clearance 53 ml/min; Glucose 99 mg/dl (70-99); Potassium 4.5 mmol/L (3.5-5.1); Sodium 142 mmol/L (135-145); eGFR > 60.00
[2025-04-05] MEDS: COZAAR 25 MG PO ×2 (07:52→11:54)
[2025-04-05] MEDS: OSCAL CAL 500 500 MG PO (07:52)
[2025-04-05 10:46] VITALS: BP 146/82
--- NOTE | 2025-04-05 10:59 | W.PN.HOSP.TC ---
Today's Communication/Plan
-
dc to home
OP PCP f/u 04/11 10 AM - [facility]
Assessment / Plan
Assessment / Plan
Assessment:
Hypertensive emergency-blood pressure in the emergency room 230/176
History of Essential HTN
- s/p Nicardipine drip
- Losartan 50mg daily at discharge
Acute CVA
- left thalamic with hemorrhagic infarct.
- Echocardiogram 04/03/2025: Reviewed, showed normal LVEF. No regional motion wall abnormalities. Stage I diastolic dysfunction. Normal right ventricular size and function. No significant valvular abnormalities.
- CT head 04/03/2025: Reviewed right thalamic small acute hemorrhagic infarct.
- MRI: No significant change in small hemorrhagic infarct of the right thalamus. Other chronic infarcts with chronic hemorrhagic components are noted, as described. No mass effect.
- repeat CT today with stable pattern of hemorrhage. ok for Aspirin - dw Neurology. Patient accepts Aspirin (no side effects reported)
- continue Statin
History of M�ni�re's disease
DVT ppx: SCDs
Code: Full
More than 30 minutes spent in discharge including
Final examination of the patient
Summarizing hospital stay
Instructions for continuing care to all relevant caregivers
Preparation of discharge records, prescriptions, and referral forms
Total time spent (in minutes): 41
Anticipated Discharge: Today
Subjective/Interval History
-
Date of Service: April 05, 2025
resting comfortably, no complaints at present
Objective Data
-
Labs:
Laboratory Results
04/05/25 04/05/25
05:53 05:54
WBC 7.6
Hgb 13.6
Hct 40.8
Plt Count 270
Sodium 142
Potassium 4.5
Chloride 111 H
Carbon Dioxide 23
BUN 20 H
Creatinine 0.9
Glucose 99
Calcium 9.4
Vital Signs:
Vital Signs
Temp Pulse Resp BP Pulse Ox
98.0 F 74 18 146/82 98
04/05/25 07:24 04/05/25 03:05 04/05/25 07:24 04/05/25 10:46 04/05/25 07:24
I&O
04/04/25 04/05/25 04/06/25
06:59 06:59 06:59
Intake Total 878 / 890.5 1130.0 / 1130.0
Output Total 600 / 600 200 / 200
Balance 278 / 290.5 930.0 / 930.0
Physical Exam
-
General: No Apparent Distress
HEENT: Normocephalic and Atraumatic
Respiratory: Negative Wheezes
Cardiac: Regular Rhythm and S1/S2
GI: Soft and Nontender
Neuro: AO x 3
Hematologic / Lymphatic: No Lymphadenopathy
Psych: Calm
Data Reviewed
-
Total Time Spent with Patient (in minutes): 41
Labs: Labs Reviewed by me
--- NOTE | 2025-04-05 11:05 | PTCARENOTE ---
patient's BP is 146/82. MD Lantigua notified. MD will assess pt at bedside
--- NOTE | 2025-04-05 11:40 | W.DS.TRANS ---
DC Summary - Procurement Cost Coordinator
-
Discharge Instructions:
Discharge Diagnosis/Procedures acute CVA
Diet Low Cholesterol,2 Gram Sodium
Activity As tolerated
Instructions:
Stand-Alone Forms:
Changes to Home Medications: No
Discharge Medications:
DC Medications w/original date entered in [employer]
calcium carbonate (Calcium 600) 600 mg PO DAILY Supplement 04/03/25
ibuprofen 200 mg tablet (Advil) 200 mg PO DAILY mild pain 04/03/25
aspirin 81 mg tablet,delayed release 81 mg PO DAILY #30 tabs 04/05/25
atorvastatin 40 mg tablet 40 mg PO QPM #30 tabs 04/05/25
losartan 50 mg tablet 50 mg PO DAILY #30 tabs 04/05/25
Home Medication Changes
Pending Results: No
Total time spent discharging patient (in min): 41
--- NOTE | 2025-04-05 11:41 | W.DS.TRANS ---
DC Summary - Delivery Supervisor
-
Discharge Instructions:
Discharge Diagnosis/Procedures acute CVA
Diet Low Cholesterol,2 Gram Sodium
Activity As tolerated
Instructions:
Stand-Alone Forms:
Changes to Home Medications: No
Discharge Medications:
DC Medications w/original date entered in [employer]
calcium carbonate (Calcium 600) 600 mg PO DAILY Supplement 04/03/25
ibuprofen 200 mg tablet (Advil) 200 mg PO DAILY mild pain 04/03/25
aspirin 81 mg tablet,delayed release 81 mg PO DAILY #30 tabs 04/05/25
atorvastatin 40 mg tablet 40 mg PO QPM #30 tabs 04/05/25
losartan 50 mg tablet 50 mg PO DAILY #30 tabs 04/05/25
Home Medication Changes
Pending Results: No
Total time spent discharging patient (in min): 41
--- NOTE | 2025-04-05 12:08 | CM ---
Patient is for discharge to home today no needs.
Plan; Home no needs.
== END 2025-04-05 12:56 | disposition home or self-care (01) | DRG 304 ==
LOC: 4 WEST ACU 13:25
PROVIDERS: Physician Assistant; ADMITTING PHYSICIAN Hospitalist; ATTENDING PHYSICIAN Internal Medicine; CONSULT PHYSICIAN Internal Medicine Critical Care Medicine; CONSULT PHYSICIAN Psychiatry & Neurology Neurology; EMERGENCY PHYSICIAN Emergency Medicine
DX: I16.1 Hypertensive emergency (principal); I61.8 Other nontraumatic intracerebral hemorrhage; R20.0 Anesthesia of skin; I10 Essential (primary) hypertension; I44.7 Left bundle-branch block, unspecified; H81.09 Meniere's disease, unspecified ear; Z91.018 Allergy to other foods; Z86.73 Personal history of transient ischemic attack (TIA), and cerebral infarction without residual deficits; Z91.81 History of falling
CPT/HCPCS: 70450; 70551; 71045; 80048; 80053; 80061; 82962; 83036; 83735; 84100; 85025; 85027; 85610; 85730; 93005; 93306; 93880; 96374; 96375; 97162; 97166; 99291; J2597